=== PATIENT | male | born 1970 | race Caucasian/White ===

== ENCOUNTER 2016-12-14 03:07 | Inpatient (IN) | payer SELFPAY ==
[~2016-12-14] VITALS: Ht 175.3 cm; Wt 80.5 kg
[2016-12-14 04:32] LABS: HEMATOCRIT 41.2 % (38.0-50.0); MCH 29.8 PG (29.0-34.0); MCV 87.7 FL (86-99); MEAN PLAT.VOLUME 10.7 uM^3 (9.0-12.4); PLATELET COUNT 144 K/uL (156-360); RBC DIS.WIDTH-CV 12.4 % (11.8-14.6); RBC DIS.WIDTH-SD 40.1 % (39-53); WHITE BLOOD COUNT 14.7 K/uL (4.1-10.2)
[2016-12-14 04:43] LABS: CHLORIDE 105 mEq/L (99-109); POTASSIUM 3.4 mEq/L (3.7-5.4); SODIUM 139 mEq/L (136-147)
[2016-12-14 04:45] LABS: GLUCOSE 110 mg/dL (70-99)
[2016-12-14 04:47] LABS: ANION GAP 10 MEQ/L (2-14); TOTAL BILIRUBIN 0.4 mg/dL (0.0-1.0)
[2016-12-14 04:49] LABS: ALKALINE PHOSPHATASE 56 IU/L (3-129)
[2016-12-14 04:50] LABS: UREA NITROGEN (BUN) 22 mg/dL (9-23)
[2016-12-14 04:52] LABS: LIPASE 14 U/L (1.0-51.0)
[2016-12-14 04:53] LABS: GFR ESTIMATE (CALCULATED) > 59 mL/min/
[2016-12-14] MEDS ORDERED: FLAGYL500 MG PO (08:49)
[2016-12-14] MEDS ORDERED: CIPRO500 MG PO (08:49)
[2016-12-14 10:23] VITALS: BP 101/62
== END 2016-12-14 08:49 | disposition left against medical advice (07) | DRG 392 ==
LOC: EME 03:07 → EDOF 07:46
PROVIDERS: Emergency Medicine
DX: K52.9 Noninfective gastroenteritis and colitis, unspecified (principal); F17.200 Nicotine dependence, unspecified, uncomplicated; Z59.0 Homelessness
CPT/HCPCS: 74176; 80053; 83605; 83690; 85027; 87040; 99281; 99285; J0744; J7030; S0030